=== PATIENT | male | born 1980 | race Caucasian/White ===

== ENCOUNTER → 2020-09-22 16:41 | Outpatient (CLI) | payer OTHER, SELFPAY ==
[2020-09-22 19:05] LABS: Rubella Antibody IgG 29.7 IU/mL (>15)
== END ==
PROVIDERS: Referring Provider Obstetrics & Gynecology; Visit Provider Obstetrics & Gynecology
DX: Z31.69 Encounter for other general counseling and advice on procreation (principal)
CPT/HCPCS: 36415; 86762

== ENCOUNTER → 2021-05-06 08:36 | Outpatient (CLI) | payer OTHER, SELFPAY ==
[2021-05-06 10:29] LABS: Semen 30 min. Liquification? Yes (YES)
[2021-05-06 10:31] LABS: Final Volume 0.5 mL; Sperm Count 80 X10^6mL
[2021-05-06 10:32] LABS: % Recovery 28 %; semen Round Cells (WBC's)/ HPF 0-1 /HPF
== END ==
PROVIDERS: PCP Naturopath; Referring Provider Obstetrics & Gynecology; Visit Provider Obstetrics & Gynecology
DX: N97.0 Female infertility associated with anovulation (principal)
CPT/HCPCS: 89261

== ENCOUNTER → 2021-10-14 11:53 | Outpatient (CLI) | payer OTHER, SELFPAY | PROVIDERS: PCP Naturopath; Referring Provider Obstetrics & Gynecology; Visit Provider Obstetrics & Gynecology | DX: N91.2 Amenorrhea, unspecified (principal) | CPT/HCPCS: 36415; 84144 ==

== ENCOUNTER → 2021-12-21 11:31 | Outpatient (CLI) | payer OTHER, SELFPAY ==
[2021-12-21 12:57] LABS: Initial Volume 1.25 mL; Semen 30 min. Liquification? Yes
[2021-12-21 12:58] LABS: Final Volume 0.5 mL
== END ==
PROVIDERS: PCP Naturopath; Referring Provider Obstetrics & Gynecology; Visit Provider Obstetrics & Gynecology
DX: Z31.9 Encounter for procreative management, unspecified (principal)
CPT/HCPCS: 58323

== ENCOUNTER → 2022-04-01 10:42 | Outpatient (CLI) | payer OTHER, SELFPAY ==
--- NOTE | 2022-04-01 10:43 | DI.RAD.S_ITS ---
PROCEDURE: HL HYSTEROSAPINGOGRAPHY INDICATIONS: Tubal patency COMPARISON: , US, US PELVIC + TRANSVAG + DOPPLER LIMITED, 02/14/2022, 9:51. FINDINGS: Patient had a documented negative test prior to the study. Following speculum insertion, a balloon-tip catheter was inserted into the cervical canal, and secured by inflating the balloon. Contrast was then injected into the endometrial canal. Uterus: The uterine cavity appears normal in size and morphology, without synechiae or masses. Fallopian tubes: Left fallopian tube fill with contrast, and appear normal in caliber and morphology. There is ready dispersion of contrast into the peritoneal cavity. There is scant dispersion of contrast in the right adnexal region. IMPRESSION: Expected spillage of contrast at the left fallopian tube. Dictated by: Tim Lisa M.D. on 04/01/2022 at 12:46 Approved by: Tim Lisa M.D. on 04/01/2022 at 12:49
--- NOTE | 2022-05-16 18:09 | PM.PROC.1 ---
Procedures Date/Time Date of procedure: 04/01/22 Time of procedure: 13:00 General Procedure description: Hysterosalpingogram After informed consent was obtained, the patient was placed on the fluoroscopy table with an overturned bedpan under her bottom. A bivalve speculum was placed into the vagina. Cultures for ureaplasma were taken. The cervix was cleaned x3 with Betadine. A single-tooth tenaculum was placed on the anterior lip of the cervix. The HSG catheter passed easily into the endometrial cavity and the balloon was inflated with 3 cc of air. The bivalve speculum was removed from the vagina. Under direct fluoroscopic examination [id number] proximally 18 cc were injected into the uterus. The contours of the uterus were normal. There was immediate spill from the left tube. The dye was removed from the uterus with a syringe. The balloon was deflated and the HSG catheter was removed from the uterus. The single-tooth tenaculum was removed from the anterior lip of the cervix. The patient tolerated the procedure well. Complications: none
== END ==
PROVIDERS: PCP Naturopath; Referring Provider Obstetrics & Gynecology; Visit Provider Obstetrics & Gynecology
DX: O00.90 Unspecified ectopic pregnancy without intrauterine pregnancy (principal); N97.9 Female infertility, unspecified; Z87.59 Personal history of other complications of pregnancy, childbirth and the puerperium
CPT/HCPCS: 58340; 74740

== ENCOUNTER → 2022-04-01 11:52 | Outpatient (CLI) | payer OTHER, SELFPAY | PROVIDERS: PCP Naturopath; Visit Provider Obstetrics & Gynecology | DX: N97.9 Female infertility, unspecified (principal); Z87.59 Personal history of other complications of pregnancy, childbirth and the puerperium ==